=== PATIENT | male | born 1945 | race Caucasian/White ===

== ENCOUNTER 2022-12-08 16:53 | Outpatient (CLI) | payer MEDICARE, OTHER | END 2022-12-08 16:54 | disposition home or self-care (01) | LOC: CSHULT 16:53 | PROVIDERS: ATTEND Specialist | DX: R60.9 Edema, unspecified (principal) ==

== ENCOUNTER 2023-06-14 10:48 | Outpatient (CLI) | payer MEDICARE, OTHER | END 2023-06-14 10:49 | disposition home or self-care (01) | LOC: CSHRAD 10:48 | PROVIDERS: ATTEND Family Medicine | DX: M95.4 Acquired deformity of chest and rib (principal) | CPT/HCPCS: 71111 ==